=== PATIENT | male | born 2000 | race Caucasian/White ===

== ENCOUNTER 2019-02-26 22:59 | Emergency (ER) | payer SELFPAY ==
[2019-02-26 23:11] VITALS: BP 162/95
[2019-02-26] MEDS ORDERED: Lidocaine 1% MPF ** 5 ML VIAL INJ ONE (23:32)
--- NOTE | 2019-02-26 23:59 | ED ---
Throat Pain/Nasal Congestion - HPI Summary HPI Summary: Patient complains of sensation of foreign body in left ear starting this evening. States possible bug may have crawled in there. Denies any other symptoms, pain or injury. - History of Current Complaint Chief Complaint: EDGeneral Time Seen by Provider: 02/26/19 23:15 Hx Obtained From: Patient Onset/Duration: Sudden Onset, Lasting Hours Severity: Moderate Associated Signs And Symptoms: Positive: Negative Cough: None - Allergies/Home Medications Allergies/Adverse Reactions: Allergies Allergy/AdvReac Type Severity Reaction Status Date / Time sheep derived (ovine) Allergy Airway Verified 02/26/19 23:01 Obstruction shellfish derived Allergy Airway Verified 02/26/19 23:01 Obstruction Home Medications: Home Medications NK [No Home Medications Reported] 02/27/19 [History Confirmed 02/27/19] PMH/Surg Hx/FS Hx/Imm Hx Endocrine/Hematology History: Denies: Hx Anticoagulant Therapy Cardiovascular History: Denies: Hx Pacemaker/ICD History: Denies: Hx Dialysis Sensory History: Denies: Hx Eye Prosthesis Opthamlomology History: Denies: Hx Legally Blind EENT History: Denies: Hx Deafness Neurological History: Denies: Hx Dementia Infectious Disease History: No Infectious Disease History: Denies: Traveled Outside the [place] in Last 30 Days - Family History Known Family History: Positive: Non-Contributory - Social History Alcohol Use: Weekly Alcohol Amount: weekend Substance Use Type: Reports: None Smoking Status (MU): Light Every Day Tobacco Smoker Review of Systems Constitutional: Negative Eyes: Negative Positive: Ear Ache Cardiovascular: Negative Respiratory: Negative Gastrointestinal: Negative Genitourinary: Negative Musculoskeletal: Negative Skin: Negative Neurological: Negative Psychological: Normal All Other Systems Reviewed And Are Negative: Yes Physical Exam Triage Information Reviewed: Yes Vital Signs On Initial Exam: Initial Vitals Temp Pulse Resp BP Pulse Ox 99.9 F 106 20 162/95 96 02/26/19 23:02 02/26/19 23:02 02/26/19 23:02 02/26/19 23:02 02/26/19 23:02 Vital Signs Reviewed: Yes Appearance: Positive: Well-Appearing Skin: Positive: Warm Head/Face: Positive: Normal Head/Face Inspection Eyes: Positive: Normal ENT: Positive: Other - Long-hair present in left ear. Neck: Positive: Supple Respiratory/Lung Sounds: Positive: Clear to Auscultation Cardiovascular: Positive: Normal Abdomen Description: Positive: Nontender Musculoskeletal: Positive: Normal Neurological: Positive: Normal Psychiatric: Positive: Normal AVPU Assessment: Alert - Chuck Coma Scale Best Eye Response: 4 - Spontaneous Best Motor Response: 6 - Obeys Commands Best Verbal Response: 5 - Oriented Coma Scale Total: 15 Procedures - Sedation Patient Received Moderate/Deep Sedation with Procedure: No Diagnostics - Vital Signs Vital Signs Temp Pulse Resp BP Pulse Ox 02/26/19 23:02 99.9 F 106 20 162/95 96 - Laboratory Lab Statement: Any lab studies that have been ordered have been reviewed, and results considered in the medical decision making process. EENT Course/Dx - Course Course Of Treatment: Patient complains of sensation of foreign body in left ear starting this evening. States possible bug may have crawled in there. Denies any other symptoms, pain or injury. Vital signs within normal limits. Hair successfully removed from left ear resulting in complete resolution of symptoms - Diagnoses Provider Diagnoses: Ear foreign body Discharge ED - Sign-Out/Discharge Documenting (check all that apply): Patient Departure - Discharge Plan Condition: Critical Disposition: HOME Patient Education Materials: Ear Foreign Body (ED) Referrals: Mary Carmen [facility] [Primary Care Provider] - Additional Instructions: Follow-up with primary care. - Billing Disposition and Condition Condition: CRITICAL Disposition: Home
== END 2019-02-27 00:02 | disposition home or self-care (01) ==
LOC: ED 22:59
DX: T16.2XXA Foreign body in left ear, initial encounter (principal); X58.XXXA Exposure to other specified factors, initial encounter; Y92.9 Unspecified place or not applicable; F17.200 Nicotine dependence, unspecified, uncomplicated
CPT/HCPCS: 99281